=== PATIENT | male | born 1955 | race Hispanic/Latino ===

== ENCOUNTER 2019-06-20 17:42 | Observation (INO) | payer SELFPAY ==
[2019-06-20 18:50] LABS: #Basophils 0.1 thou/uL (0.0-0.2); #Eosinphils 0.1 thou/uL (0.0-0.7); #Lymphocytes 1.1 thou/uL (1.20-3.40); #Monocytes 0.6 thou/uL (0.11-0.59); #Neutrophils 9.6 thou/uL (1.40-6.50); %Basophils 0.5 % (0.0-1.0); %Eosinophils 0.8 % (0.0-10.0); %Lymphocytes 9.3 % (21.0-51.0); %Neutrophils 84.4 % (42.0-75.0); Hemoglobin 14.5 g/dL (14.0-18.0); Mean Corpuscular HGB CONC 33.4 g/dL (32.0-36.0); Mean Corpuscular Hemoglobin 32.5 pg (27.0-31.0); Mean Corpuscular Volume 97.2 fL (78.0-98.0); Mean Platelet Volume 9.6 fL (7.4-10.4); Platelet Count 213 thou/uL (130-400); RBC Distribution Width 11.9 % (11.5-14.5); Red Blood Cell (RBC) Count 4.47 mill/uL (4.70-6.10); White Blood Cell (WBC) Count 11.3 thou/uL (4.8-10.8)
--- NOTE | 2019-06-20 18:59 | RAD ---
Chest one view HISTORY: Syncope. FINDINGS: Cardiac silhouette is magnified by projection. Pulmonary vasculature is unremarkable. Subtle ill-defined areas of increased density at each lower lobe may represent mild parenchymal infil trate. No lobar consolidation or evidence of pneumothorax. Gas under the right hemidiaphragm appears to represent the hepatic flexure of the colon. IMPRESSION : Possible mild patchy bibasilar infiltrate. Clinical correlation regarding other signs and symptoms of multifocal pneumonitis is required. No lobar consolidation.
[2019-06-20 19:05] LABS: ALT (SGPT) 53 U/L (8-55); AST (SGOT) 37 U/L (5-34); Albumin 4.3 g/dL (3.4-4.8); Alkaline Phosphatase 113 U/L (40-110); Anion Gap 12 mmol/L (10-20); BUN (Urea Nitrogen) 17 mg/dL (8.4-25.7); Bilirubin, Total 0.3 mg/dL (0.2-1.2); CK (CPK) 98 U/L (30-200); Calc. Creatinine Clearance 0 mL/min (70-130); Calcium 9.5 mg/dL (7.8-10.44); Carbon Dioxide 29 mmol/L (23-31); Chloride 104 mmol/L (98-107); Estimated GFR-MDRD Greater than 90; Globulin 2.5 g/dL (2.4-3.5); Glucose 99 mg/dL (80-115); Lipase 26 U/L (8-78); Potassium 4.5 mmol/L (3.5-5.1); Protein, Total 6.8 g/dL (5.8-8.1); Sodium 140 mmol/L (136-145)
--- NOTE | 2019-06-20 19:15 | CT ---
CT head noncontrast HISTORY: Vomiting. Hypertension. FINDINGS: There is no evidence of acute intracranial hemorrhage or infarct. The ventricles appear nor mal in size, shape and position. There is no mass effect or shift of midline structures. Visualized paranasal sinuses remain well aerated. Small osseous excrescence is noted just anterior to the left side of the base of the nasal bone. IMPRESSION : No acute intracranial abnormalities are demonstrated.
[2019-06-20 20:09] LABS: Bilirubin Negative (Negative); Blood, Urine Negative (Negative); Clarity Turbid (Clear); Glucose, Urine (Dipstick) Normal (Negative); Leukocyte Negative Leu/uL (Negative); Nitrite Negative (Negative); Protein, Urine (Dipstick) Negative (Neg-Trace); Urobilinogen Normal mg/dL (Less than 2)
[2019-06-20] MEDS ORDERED: Senokot S 8.6-50 MG TAB PO PRN (21:04)
[2019-06-20] MEDS ORDERED: Acetaminophen 325 MG TAB PO PRN (21:04)
[2019-06-20] MEDS ORDERED: HYDROcodone/Acetaminophen 5/325 mg Tablet PO PRN ×2 (21:04)
[2019-06-20 22:02] LABS: Troponin I Less than 0.010 ng/mL (< 0.028)
[2019-06-20 22:28] VITALS: BMI 27.8
[2019-06-20] MEDS: cefTRIAXone\\ROCEPHIN 2 GM in Sodium Chloride 0.9% 100 ML IVPB SCH (22:44)
--- NOTE | 2019-06-20 23:08 | HP ---
PRIMARY CARE PHYSICIAN: None. CHIEF COMPLAINT: Near syncope, nausea, vomiting, and diaphoresis. HISTORY OF PRESENT ILLNESS: This is a very pleasant 63-year-old male, who reported to the emergency room today after he was at his son's house, had lunch, drank a soda, which he had stopped drinking about seven months ago and had near-syncope episodes, some diaphoresis, nausea, and then threw up once. He reports that this happens when he drinks soda. The last time that he was admitted was in [facility] where they did a workup. He says they did an echocardiogram at that time and he was sent home with no real explanation other than he needed to stop drinking soda. He reports that this episode happened again two weeks ago and again he had a soda at that time. He was always concerned because while he was in the emergency room, his heart rate dropped into the 40s and he said at that point that he also felt the similar symptoms with the nausea and diaphoresis and the weakness. His workup in the emergency room with a brain CT that was unremarkable; chest x-ray, which shows possible mild patchy bibasilar infiltrates. There is no lobar consolidation. He denies any fever or chills at home. Blood work with a slightly elevated white blood cell count of 11.3, hemoglobin 14.5, hematocrit 43.4, and platelet count 213. Chemistry unremarkable except for an AST, which slightly bumped to 37 and an alkaline phosphatase slightly bumped to 113. Troponins x2 were undetectable. Urine is negative other than it was a little bit turbid with no leukocyte esterase or white blood cells. The patient to be admitted for possible symptomatic bradycardia workup and further management. REVIEW OF SYSTEMS: Reports near syncope. Reports diaphoresis. Reports nausea. Reports vomiting. Reports dizziness. Reports weakness, which is transient. Denies fever, chills, cough, or shortness of breath. All systems are reviewed and are negative unless mentioned in the HPI or above. PAST MEDICAL HISTORY: None other than the similar episodes over the last seven months when he drinks soda. PAST SURGICAL HISTORY: Right toe surgery. PSYCHIATRIC HISTORY: None. SOCIAL HISTORY: Drinks socially. Denies drug use. No smoking history. KNOWN ALLERGIES: None. CURRENT MEDICATIONS: None. PHYSICAL EXAMINATION: VITAL SIGNS: Blood pressure 157/98, pulse 61, respiratory rate is 16, pO2 sats are 98% on room air. CONSTITUTIONAL: The patient appears nontoxic. He is alert and oriented to person, place, and time. HEAD: Atraumatic and normocephalic. EYES: Pupils are equal, round, and reactive to light. Extraocular muscles are intact. ENT: Mouth exam is normal. Mucous membranes are moist. NECK: Normal range of motion. Trachea is midline. RESPIRATORY/CHEST: Breath sounds are clear. Chest expansion is equal. CARDIOVASCULAR: Regular sinus rhythm. Heart sounds are normal. ABDOMEN: Nontender. Bowel sounds are heard. BACK: Normal range of motion. No tenderness. EXTREMITIES: Upper extremity, normal range of motion. Motor strength is normal. Radial pulses are normal. Lower extremity, normal range of motion. Motor strength is normal. Pedal pulses are normal. No edema is noted. NEUROLOGIC: The patient is oriented to person, place, and time. There are no focal deficits noted. SKIN: Warm and dry. Normal in color of the skin that is visualized. DIAGNOSTIC DATA: EKG in the emergency room shows sinus dhruv, rate 57. No ST or T-wave changes. PLAN/ASSESSMENT: 1. Possible symptomatic bradycardia. Not sure about the correlations between drinking a soda and these symptoms, although I did tell him that he probably should stop drinking sodas. We will get the records from [facility]. I have ordered an echocardiogram and a Cardiology consult. We will repeat labs, add lipids, TSH. 2. He had some nausea and vomiting when he first appeared in the ER, but he states that has resolved. We will continue to monitor that. 3. Deep venous thrombosis and gastrointestinal prophylaxis started. 4. Possible pneumonitis seen on the x-ray. He denies any symptoms. No cough. No shortness of breath. No fever. No chills. The case is discussed with Dr. Trevino, who suggested that we start antibiotics while he is hospitalized and while working him up, probably could be deescalated if he continues to not have any symptoms. 5. The case was discussed with Dr. Trevino and he agrees with the plan. 6. Hospitalization dependent on clinical findings. Job ID: [id number]
[2019-06-20] MEDS: Azithromycin 500 MG in Sodium Chloride 0.9% 250 ML 250 ML IVPB SCH (23:47)
[2019-06-21 00:59] LABS: Troponin I Less than 0.010 ng/mL (< 0.028)
[2019-06-21 05:28] LABS: #Eosinphils 0.1 thou/uL (0.0-0.7); #Lymphocytes 1.4 thou/uL (1.20-3.40); #Monocytes 0.6 thou/uL (0.11-0.59); #Neutrophils 4.9 thou/uL (1.40-6.50); %Basophils 0.4 % (0.0-1.0); %Eosinophils 1.8 % (0.0-10.0); %Lymphocytes 20.2 % (21.0-51.0); %Neutrophils 69.6 % (42.0-75.0); Hemoglobin 14.2 g/dL (14.0-18.0); Mean Corpuscular HGB CONC 32.1 g/dL (32.0-36.0); Mean Corpuscular Hemoglobin 31.5 pg (27.0-31.0); Mean Platelet Volume 10.2 fL (7.4-10.4); Platelet Count 217 thou/uL (130-400); RBC Distribution Width 12.1 % (11.5-14.5); Red Blood Cell (RBC) Count 4.52 mill/uL (4.70-6.10); White Blood Cell (WBC) Count 7.1 thou/uL (4.8-10.8)
[2019-06-21 05:45] LABS: ALT (SGPT) 42 U/L (8-55); AST (SGOT) 23 U/L (5-34); Alkaline Phosphatase 109 U/L (40-110); Anion Gap 11 mmol/L (10-20); BUN (Urea Nitrogen) 13 mg/dL (8.4-25.7); Bilirubin, Total 0.4 mg/dL (0.2-1.2); Calc. Creatinine Clearance 136 mL/min (70-130); Carbon Dioxide 27 mmol/L (23-31); Cardiac Risk 4.3 (Less than 4.5); Chloride 106 mmol/L (98-107); Cholesterol 226 mg/dl (< 200 Desired); Estimated GFR-MDRD Greater than 90; Globulin 2.6 g/dL (2.4-3.5); Glucose 106 mg/dL (80-115); HDL Cholesterol 53 mg/dL (>60 Neg Risk); LDL Cholesterol, Calculated 153 mg/dL; Potassium 3.9 mmol/L (3.5-5.1); Protein, Total 6.6 g/dL (5.8-8.1); Sodium 140 mmol/L (136-145); Triglycerides 99 mg/dL (Less than 150)
[2019-06-21] MEDS ORDERED: Metoclopramide HCl 10 MG/2 ML VIAL IVP PRN (08:21)
[2019-06-21] MEDS ORDERED: Sodium Chloride 0.65% Nasal 44 ML BOT EA NARE PRN (08:21)
[2019-06-21] MEDS ORDERED: hydrALAZINE 20 MG/ML VIAL SLOW IVP PRN (08:21)
[2019-06-21] MEDS ORDERED: Calcium Carbonate 500 MG ChewTAB PO PRN (08:21)
[2019-06-21] MEDS ORDERED: Cepastat Lozenges 1 LOZ PO PRN (08:21)
[2019-06-21] MEDS ORDERED: Diabetic Tussin 200 MG/10 ML UDCUP PO PRN (08:21)
[2019-06-21] MEDS ORDERED: Artificial Tears 18 DROP/0.9 ML EA EYE PRN (08:21)
[2019-06-21] MEDS ORDERED: Loratadine 10 MG TAB PO PRN (08:21)
[2019-06-21] MEDS ORDERED: Zolpidem Tartrate 5 MG TAB PO PRN (08:21)
[2019-06-21] MEDS ORDERED: Loperamide HCl 2 MG CAP PO PRN (08:21)
[2019-06-21] MEDS: Famotidine 20 MG TAB PO SCH ×2 (09:04→21:40)
[2019-06-21] MEDS: Enoxaparin Sodium 40 MG/0.4 ML SYRINGE SC SCH (09:04)
--- NOTE | 2019-06-21 10:46 | PDOC.HOSPP ---
- Subjective Encounter Date: 06/21/19 Encounter Time: 08:15 Subjective: Patient seen and examined. No new complaints. No overnight events - Objective Vital Signs & Weight: Vital Signs (12 hours) Temp Pulse Pulse Pulse Resp BP BP 06/21/19 08:43 67 67 119/76 137/69 06/21/19 07:52 98.6 F 61 18 06/21/19 03:23 97.4 F L 62 16 BP Pulse Ox 06/21/19 08:43 06/21/19 07:52 120/73 97 06/21/19 03:23 118/73 99 Weight Weight 193 lb 12.8 oz Result Diagrams: 06/21/19 04:55 06/21/19 04:55 Radiology Reviewed by me: Yes EKG Reviewed by me: Yes Hospitalist ROS - Review of Systems ENT: denies: ear pain, ear discharge, nose pain, nose discharge, nose congestion , mouth pain, mouth swelling, throat pain, throat swelling, other Respiratory: denies: cough, dry, shortness of breath, hemoptysis, SOB with excertion, pleuritic pain, sputum, wheezing, other Cardiovascular: denies: chest pain, palpitations, orthopnea, paroxysmal noc. dyspnea, edema, light headedness, other Gastrointestinal: denies: nausea, vomiting, abdominal pain, diarrhea, constipation, melena, hematochezia, other Genitourinary: denies: dysuria, frequency, incontinence, hematuria, retention, other Musculoskeletal: denies: neck pain, shoulder pain, arm pain, back pain, hand pain, leg pain, foot pain, other - Medication Medications: Active Medications Generic Name Dose Route Start Last Admin Trade Name Deshawn PRN Reason Stop Dose Admin Acetaminophen 650 mg 06/20/19 21:04 06/20/19 22:12 Tylenol PO 650 mg Q4H PRN Administration Headache/Fever/Mild Pain (1-3) Enoxaparin Sodium 40 mg 06/21/19 09:00 06/21/19 09:04 Lovenox SC 40 mg 0900 [facility] Administration Famotidine 20 mg 06/21/19 09:00 06/21/19 09:04 Pepcid PO 20 mg BID OSMAN Administration Azithromycin 500 mg/ Sodium 250 mls @ 250 mls/hr 06/20/19 23:00 06/20/19 23: 47 Chloride IVPB 250 mls 2300 OSMAN Administration Ceftriaxone Sodium 2 gm/ 100 mls @ 200 mls/hr 06/20/19 22:00 06/20/19 22:44 Sodium Chloride IVPB 100 mls 2200 OSMAN Administration - Exam General Appearance: NAD, awake alert Eye: PERRL, anicteric sclera ENT: normocephalic atraumatic, no oropharyngeal lesions Neck: supple, symmetric, no JVD, no thyromegaly Heart: RRR, no murmur, no gallops, no rubs Respiratory: CTAB, no wheezes, no rales, no ronchi Gastrointestinal: soft, non-tender, non-distended, normal bowel sounds Extremities: no cyanosis, no clubbing Skin: normal turgor, no lesions Neurological: cranial nerve grossly intact, no focal deficits Musculoskeletal: normal tone, normal strength Psychiatric: normal affect, normal behavior Hosp A/P (1) Syncope Code(s): R55 - SYNCOPE AND COLLAPSE Status: Acute (2) Bradycardia Code(s): R00.1 - BRADYCARDIA, UNSPECIFIED Status: Acute (3) Pneumonia Code(s): J18.9 - PNEUMONIA, UNSPECIFIED ORGANISM Status: Acute - Plan old records reviewed/req, continue antibiotics echo today cardiology consulted orthostatic vitals continue rocephin and azithromycin expecting discharge tomorrow continue tele monitoring medication reviewed and continue symptomatic treatment
--- NOTE | 2019-06-21 14:43 | CON ---
DATE OF CONSULTATION: 06/21/2019 REASON FOR CONSULTATION: Near-syncope. HISTORY OF PRESENT ILLNESS: Mr. Prado is a 63-year-old gentleman with no significant past medical history, who states he has had dizziness, lightheadedness, and presyncope over the last year. He has 2 to 3 episodes per month. He states sometimes he gets from a lying to standing position, where he develop symptoms, but sometimes it can be spontaneous. He was seen and evaluated at [facility] recently with a full cardiac workup per patient. Records from [facility] are currently not available. No chest pain, pressure, or other associated symptoms. PAST MEDICAL HISTORY: As above. SURGICAL HISTORY: Foot surgery. SOCIAL HISTORY: No current tobacco or alcohol use. ALLERGIES: NONE. MEDICATIONS: None. REVIEW OF SYSTEMS: A 10-point review of systems is reviewed as above, otherwise negative. PHYSICAL EXAMINATION: GENERAL: Patient is a pleasant male, who is in no acute distress. The patient appears their stated age. VITAL SIGNS: Blood pressure lying, sitting, standing 111/62, 105/64, and 108/71 respectively. Pulse 63. NEUROLOGIC: The patient is alert and oriented x3 with no focal neurologic deficits. HEENT: Sclerae without icterus. Mouth has moist mucous membranes with normal pallor. NECK: No JVD. Carotid upstroke brisk. No bruits bilaterally. LUNGS: Clear to auscultation with unlabored respirations. BACK: No scoliosis or kyphosis. CARDIAC: Regular rate and rhythm with normal S1 and S2. No S3 or S4 noted. No significant rubs, murmurs, thrills, or gallops noted throughout the precordium. PMI is not displaced. There is no parasternal heave. ABDOMEN: Soft, nontender, nondistended. No peritoneal signs present. No hepatosplenomegaly. No abnormal striae. EXTREMITIES: 2+ femoral and 2+ dorsalis pedis pulses. No cyanosis, clubbing, or edema. SKIN: No gross abnormalities. DIAGNOSTIC DATA: EKG; normal sinus rhythm, normal EKG. PERTINENT LABORATORY DATA: Hemoglobin 14.2. Creatinine 0.69. CK troponin negative. IMPRESSION: Presyncope. RECOMMENDATIONS: 1. Obtain records from [facility]. Do not repeat any further studies. 2. The patient does have bradycardia noted on the monitor, but all above 50. 3. If echo and stress have been performed at [facility], we will therefore recommend a 3-week event recorder. 4. Otherwise, I have no further recommendations. Job ID: [id number]
[2019-06-21] MEDS: cefTRIAXone\\ROCEPHIN 2 GM in Sodium Chloride 0.9% 100 ML IVPB SCH (21:41)
[2019-06-21] MEDS: Azithromycin 500 MG in Sodium Chloride 0.9% 250 ML 250 ML IVPB SCH (22:28)
[2019-06-22] MEDS: Enoxaparin Sodium 40 MG/0.4 ML SYRINGE SC SCH (09:03)
[2019-06-22] MEDS: Famotidine 20 MG TAB PO SCH (09:03)
--- NOTE | 2019-06-22 09:49 | PDOC.HOSPP ---
- Subjective Encounter Date: 06/22/19 Encounter Time: 08:10 Subjective: Patient seen and examined. No new complaints. No overnight events - Objective Vital Signs & Weight: Vital Signs (12 hours) Temp Pulse Resp BP BP Pulse Ox 06/22/19 07:16 97.8 F 62 12 116/66 96 06/22/19 03:34 97.6 F 55 L 105/56 L 97 Weight Admit Weight 193 lb 12.8 oz Weight 193 lb 12.8 oz I&O: 06/21/19 06/22/19 06/23/19 06:59 06:59 06:59 Intake Total 950 Balance 950 Result Diagrams: 06/21/19 04:55 06/21/19 04:55 Radiology Reviewed by me: Yes EKG Reviewed by me: Yes Hospitalist ROS - Review of Systems ENT: denies: ear pain, ear discharge, nose pain, nose discharge, nose congestion , mouth pain, mouth swelling, throat pain, throat swelling, other Respiratory: denies: cough, dry, shortness of breath, hemoptysis, SOB with excertion, pleuritic pain, sputum, wheezing, other Cardiovascular: denies: chest pain, palpitations, orthopnea, paroxysmal noc. dyspnea, edema, light headedness, other Gastrointestinal: denies: nausea, vomiting, abdominal pain, diarrhea, constipation, melena, hematochezia, other Genitourinary: denies: dysuria, frequency, incontinence, hematuria, retention, other Musculoskeletal: denies: neck pain, shoulder pain, arm pain, back pain, hand pain, leg pain, foot pain, other - Medication Medications: Active Medications Generic Name Dose Route Start Last Admin Trade Name Deshawn PRN Reason Stop Dose Admin Acetaminophen 650 mg 06/20/19 21:04 06/20/19 22:12 Tylenol PO 650 mg Q4H PRN Administration Headache/Fever/Mild Pain (1-3) Enoxaparin Sodium 40 mg 06/21/19 09:00 06/22/19 09:03 Lovenox SC 40 mg 0900 OSMAN Administration Famotidine 20 mg 06/21/19 09:00 06/22/19 09:03 Pepcid PO 20 mg BID OSMAN Administration Azithromycin 500 mg/ Sodium 250 mls @ 250 mls/hr 06/20/19 23:00 06/21/19 22: 28 Chloride IVPB 250 mls 2300 [facility] Administration Ceftriaxone Sodium 2 gm/ 100 mls @ 200 mls/hr 06/20/19 22:00 06/21/19 21:41 Sodium Chloride IVPB 100 mls 2200 OSMAN Administration - Exam General Appearance: NAD, awake alert Eye: PERRL, anicteric sclera ENT: normocephalic atraumatic, no oropharyngeal lesions Neck: supple, symmetric, no JVD Heart: RRR, no murmur, no gallops, no rubs Respiratory: CTAB, no wheezes, no rales, no ronchi Gastrointestinal: soft, non-tender, non-distended, normal bowel sounds Extremities: no cyanosis, no clubbing, no edema Skin: normal turgor, no lesions Neurological: cranial nerve grossly intact, no focal deficits Musculoskeletal: normal tone, normal strength Psychiatric: normal affect, normal behavior Hosp A/P (1) Syncope Code(s): R55 - SYNCOPE AND COLLAPSE Status: Acute (2) Bradycardia Code(s): R00.1 - BRADYCARDIA, UNSPECIFIED Status: Acute (3) Pneumonia Code(s): J18.9 - PNEUMONIA, UNSPECIFIED ORGANISM Status: Acute - Plan old records reviewed/req echo today cardiology consulted orthostatic vitals continue rocephin and azithromycin expecting discharge tomorrow continue tele monitoring medication reviewed and continue symptomatic treatment 06/22/19 await record from [place] if OK, and cardio OK, will DC later today ? plan for event recorder
--- NOTE | 2019-06-22 11:01 | DIS ---
DATE OF ADMISSION: 06/20/2019 DATE OF DISCHARGE: 06/22/2019 PRIMARY CARE PHYSICIAN: [facility] Call admission. DISCHARGE DISPOSITION: Home. PRIMARY DISCHARGE DIAGNOSES: 1. Suspected pneumonia. 2. Symptomatic bradycardia, resolved. 3. Near syncope, resolved. SECONDARY DISCHARGE DIAGNOSIS: None. PRIMARY PROCEDURES/OPERATIONS: None. RADIOLOGICAL INVESTIGATION: CT of brain, negative. Chest x-ray, normal. SIGNIFICANT LABORATORY DATA: WBC 7.1, hemoglobin 14.2, platelet 217. Sodium 140, creatinine 0.69. LFTs normal. Cardiac enzymes negative x3. Urinalysis normal. DISCHARGE MEDICATIONS: Omnicef 300 mg p.o. b.i.d. for 5 days. CONTRAINDICATION: None. CODE STATUS: Full code. INPATIENT SPECIAL EVENTS ASSISTANT: Dr. Neumann was following while in hospital. TEST RESULTS PENDING ON DISCHARGE: None. ALLERGIES: NO KNOWN DRUG ALLERGIES. DISCHARGE PLAN: Post hospital, the patient will follow up with primary care physician in 1 week. HOSPITAL COURSE: A 63-year-old male, who was admitted by nurse practitioner. Please see her H and P for further details. The patient was experiencing dizzy spells. The patient had bradycardia on arrival. The patient's CT brain was negative. Routine blood test was unremarkable. Chest x-ray was suspected for some infiltration and that is why he was empirically treated for community-acquired pneumonia with Rocephin and azithromycin. This patient had full workup done recently at [facility]. We obtained medical records from that hospital. Cardiology recommending Holter monitoring. There is no plan for further testing during this admission. The patient's cardiac etiology has been ruled out. His heart rate is remaining in 60s to 70s and he has no further bradycardia episode while in the hospital. He does not have any orthostatic hypotension. At this point, telemetry remained unremarkable and Cardiology cleared him for discharge later on today. The patient is seen and examined at bedside today. The patient will be discharged to home later on today. Job ID: [id number]
[2019-06-22 16:20] VITALS: BP 122/72; TEMP 98.3
--- NOTE | 2019-06-22 18:13 | PRG ---
DATE OF SERVICE: 06/22/2019 SUBJECTIVE: Mr. Prado is doing well. No current complaints. His rhythm appears stable. Review of the previous studies for [facility] suggested normal LVEF and no significant stenosis of his carotids. OBJECTIVE: VITAL SIGNS: Blood pressure 122/72, pulse 85, and temperature 98.3. LUNGS: Clear to auscultation. HEART: Regular rate and rhythm. ABDOMEN: Soft, nontender, and nondistended. EXTREMITIES: No edema. IMPRESSION: 1. Dizziness. 2. Lightheadedness. 3. Presyncope. RECOMMENDATIONS: Mr. Prado's cardiac workup in the past is negative. Recommend a 3-week event recorder. Can arrange as an outpatient. Otherwise, I have no further recommendations. Job ID: [id number]
--- NOTE | 2019-06-26 13:30 | EKG ---
Test Reason : SYNCOPE Blood Pressure : / mmHG Vent. Rate : 057 BPM Atrial Rate : 057 BPM P-R Int : 158 ms QRS Dur : 092 ms QT Int : 420 ms P-R-T Axes : 021 -10 004 degrees QTc Int : 408 ms Sinus bradycardia Otherwise normal ECG Confirmed by GEORGINA RICHARDSON DO ([id number]), editorial assistant IRMA FERNANDO ([id number]) on 06/26/2019 1:30:26 PM Referred By: Confirmed By:GEORGINA RICHARDSON DO
== END 2019-06-22 18:40 | disposition home or self-care (01) ==
LOC: ERS 17:42 → 2NO 20:36
PROVIDERS: ADMIT Internal Medicine; ATTEND Internal Medicine
DX: R55 Syncope and collapse (principal); R00.1 Bradycardia, unspecified; R11.2 Nausea with vomiting, unspecified; R61 Generalized hyperhidrosis; R42 Dizziness and giddiness
CPT/HCPCS: 36415; 70450; 71045; 80053; 80061; 81003; 82550; 83690; 84443; 84484; 85025; 93005; 93306; 96361; 96372; 96374; 96375; 96376; G0378; J0456; J0696; J1650; J3490; J7050

== ENCOUNTER 2019-06-28 13:40 | Observation (INO) | payer MEDICARE, SELFPAY ==
[2019-06-28 14:31] LABS: #Eosinphils 0.1 thou/uL (0.0-0.7); #Lymphocytes 1.1 thou/uL (1.20-3.40); #Monocytes 0.3 thou/uL (0.11-0.59); #Neutrophils 7.1 thou/uL (1.40-6.50); %Basophils 0.2 % (0.0-1.0); %Eosinophils 0.8 % (0.0-10.0); %Lymphocytes 13.2 % (21.0-51.0); %Monocytes 3.8 % (0.0-10.0); %Neutrophils 81.9 % (42.0-75.0); Hemoglobin 14.5 g/dL (14.0-18.0); Mean Corpuscular HGB CONC 32.3 g/dL (32.0-36.0); Mean Corpuscular Hemoglobin 31.4 pg (27.0-31.0); Mean Corpuscular Volume 97.3 fL (78.0-98.0); Mean Platelet Volume 9.9 fL (7.4-10.4); Platelet Count 231 thou/uL (130-400); Red Blood Cell (RBC) Count 4.61 mill/uL (4.70-6.10); White Blood Cell (WBC) Count 8.6 thou/uL (4.8-10.8)
--- NOTE | 2019-06-28 14:41 | RAD ---
PORTABLE CHEST: History: Chest pain. FINDINGS: Lung lee appear clear of infiltrate. Heart and mediastinum unremarkable. Vasculature normal. IMPRESSION: No acute process identified. POS: [facility]
[2019-06-28 15:05] LABS: ALT (SGPT) 33 U/L (8-55); AST (SGOT) 19 U/L (5-34); Albumin 4.4 g/dL (3.4-4.8); Alkaline Phosphatase 114 U/L (40-110); Anion Gap 14 mmol/L (10-20); BUN (Urea Nitrogen) 13 mg/dL (8.4-25.7); Bilirubin, Total 0.5 mg/dL (0.2-1.2); Calc. Creatinine Clearance 0 mL/min (70-130); Calcium 9.1 mg/dL (7.8-10.44); Carbon Dioxide 25 mmol/L (23-31); Chloride 103 mmol/L (98-107); Estimated GFR-MDRD Greater than 90; Globulin 2.6 g/dL (2.4-3.5); Glucose 130 mg/dL (80-115); Potassium 4.1 mmol/L (3.5-5.1); Sodium 138 mmol/L (136-145)
[2019-06-28] MEDS ORDERED: Aspirin Chewable 81 MG TAB ONE (15:27)
[2019-06-28 18:44] VITALS: BMI 26.8
[2019-06-28] MEDS ORDERED: Nitroglycerin 0.4 MG TAB (25 Tab Bottle) PO PRN (20:47)
[2019-06-28] MEDS ORDERED: Calcium Carbonate 500 MG ChewTAB PO PRN (20:53)
[2019-06-28] MEDS ORDERED: Acetaminophen 325 MG TAB PO PRN (20:53)
--- NOTE | 2019-06-28 20:58 | PDOC.HHP ---
Hospitalist HPI - History of Present Illness Chest Pain History of Present Illness: PCP: NONE Child And Family Services Worker: Dr. Neumann The patient is frisian speaking, so H&P was from [employer] interpreter. The patient is a 63/M with PMH significant for HTN that presents to the ER for the above complaint. The patient reports developing chest pain for past 5 days, located left chest, radiating to left arm and neck, describes as a dull pressure , constant, exacerbated and relieved by nothing. He denies any heart palpitations, sob, wheezing. Denies any headaches or light headedness. Denies any abdominal pain, n/v/d. Denies any fever or chills. He was discharged from our hospital on 06/22/19 for suspected pneumonia (d/c'd on omnicef), bradycardia and near syncope. Dr. Neumann was consulted and noted that patient recently had full cardiac workup at the [facility] and if workup was unremarkable, he recommended follow up in 3 weeks for possible event recorder. ED Course: EKG SB 60s Trop negative CXR negative CMP and CBC unremarkable Given: ASA 324mg Hospitalist ROS - Review of Systems Constitutional: denies: fever, chills, sweats, weakness, malaise, other Eyes: denies: pain, vision change, conjunctivae inflammation, eyelid inflammation, redness, other ENT: denies: ear pain, ear discharge, nose pain, nose discharge, nose congestion , mouth pain, mouth swelling, throat pain, throat swelling, other Respiratory: denies: cough, dry, shortness of breath, hemoptysis, SOB with excertion, pleuritic pain, sputum, wheezing, other Cardiovascular: reports: chest pain. denies: palpitations, orthopnea, paroxysmal noc. dyspnea, edema, light headedness Gastrointestinal: denies: nausea, vomiting, abdominal pain, diarrhea, constipation, melena, hematochezia, other Genitourinary: denies: dysuria, frequency, incontinence, hematuria, retention, other Neurological: denies: weakness, numbness, incoordination, change in speech, confusion, seizures, other Hospitalist History - Past Medical History Cardiac: reports: HTN (not taking any medications) - Past Surgical History Past Surgical History: reports: Other (right 2nd toe amputation from working accident) - Family History Family History: reports: respiratory disorder - Social History Smoking Status: Never smoker Alcohol: reports: None Drugs: reports: none Living Situation: With Family Occupation: Lives in [place], disability - Exam General Appearance: NAD, awake alert Eye: anicteric sclera ENT: normocephalic atraumatic Neck: supple, no JVD Heart: RRR, no murmur, no gallops, no rubs, normal peripheral pulses Respiratory: CTAB, no wheezes, no rales, no ronchi, no tachypnea Gastrointestinal: soft, non-tender, normal bowel sounds, no guarding, no rigidity Extremities: no cyanosis, no edema Neurological: no focal deficits Musculoskeletal: normal tone, normal strength Psychiatric: normal affect, A&O x 3 Hospitalist Results - Labs Result Diagrams: 06/28/19 14:09 06/28/19 14:09 Lab results: WBC 8.6 thou/uL (4.8-10.8) 06/28/19 14:09 Hgb 14.5 g/dL (14.0-18.0) 06/28/19 14:09 Hct 44.9 % (42.0-52.0) 06/28/19 14:09 MCV 97.3 fL (78.0-98.0) 06/28/19 14:09 Plt Count 231 thou/uL (130-400) 06/28/19 14:09 Neutrophils % 81.9 % (42.0-75.0) H 06/28/19 14:09 Sodium 138 mmol/L (136-145) 06/28/19 14:09 Potassium 4.1 mmol/L (3.5-5.1) 06/28/19 14:09 Chloride 103 mmol/L (98-107) 06/28/19 14:09 Carbon Dioxide 25 mmol/L (23-31) 06/28/19 14:09 BUN 13 mg/dL (8.4-25.7) 06/28/19 14:09 Creatinine 0.78 mg/dL (0.7-1.3) 06/28/19 14:09 Glucose 130 mg/dL (80-115) H 06/28/19 14:09 Calcium 9.1 mg/dL (7.8-10.44) 06/28/19 14:09 Total Bilirubin 0.5 mg/dL (0.2-1.2) 06/28/19 14:09 AST 19 U/L (5-34) 06/28/19 14:09 ALT 33 U/L (8-55) 06/28/19 14:09 Alkaline Phosphatase 114 U/L (40-110) H 06/28/19 14:09 Troponin I Less than 0.010 ng/mL (< 0.028) 06/28/19 14:09 Serum Total Protein 7.0 g/dL (5.8-8.1) 06/28/19 14:09 Albumin 4.4 g/dL (3.4-4.8) 06/28/19 14:09 - EKG Interpretation EKG: SB - Radiology Interpretation Chest x-ray Status: report reviewed by me Hospitalist H&P A/P - Problem (1) Chest pain Code(s): R07.9 - CHEST PAIN, UNSPECIFIED Status: Acute Assessment and Plan: Admit to telemetry floor, observation status Expected length of stay less than 2 midnights HEART Score 2, low score EKG SB, Trop negative, CXR unremarkable Patient had recent cardiac workup at [facility] Will obtain records for cardiac workup at [facility] Will trend trops, check BNP and Mag and TSH level FLP on 06/21/19 completed Cholesterol 226 Triglycerides 99 LDL 153 HDL 53 BS elevated at 130, will check HA1C Continue ASA (2) Bradycardia Code(s): R00.1 - BRADYCARDIA, UNSPECIFIED Status: Chronic Assessment and Plan: Stable, 60s Previously seen by Dr. Neumann in June 2019, recommended 3 week follow up for possible event recorder (3) HTN (hypertension) Code(s): I10 - ESSENTIAL (PRIMARY) HYPERTENSION Status: Chronic Assessment and Plan: No medication regimen BP stable 122/67 Will continue to monitor - Plan Plan: Consult walking program Pepcid GI prophylaxis LMWH and SCDs for DVT prophylaxis Full Code Medical decision maker is Naila Cash at [phone] Trevino
[2019-06-28] MEDS: Famotidine 20 MG TAB PO SCH (21:21)
[2019-06-28 21:54] LABS: Troponin I Less than 0.010 ng/mL (< 0.028)
[2019-06-28 22:01] LABS: Hemoglobin A1c 5.6 % (4.0-6.0)
[2019-06-29 00:07] LABS: Troponin I 0.013 ng/mL (< 0.028)
[2019-06-29] MEDS: Sodium Chloride 0.9% 1,000 ML IV SCH ×2 (00:10→13:46)
[2019-06-29 05:31] LABS: #Basophils 0.1 thou/uL (0.0-0.2); #Eosinphils 0.1 thou/uL (0.0-0.7); #Lymphocytes 1.6 thou/uL (1.20-3.40); #Monocytes 0.5 thou/uL (0.11-0.59); #Neutrophils 3.5 thou/uL (1.40-6.50); %Basophils 1.2 % (0.0-1.0); %Eosinophils 2.6 % (0.0-10.0); %Lymphocytes 27.4 % (21.0-51.0); %Neutrophils 60.8 % (42.0-75.0); Hemoglobin 14.3 g/dL (14.0-18.0); Mean Corpuscular HGB CONC 32.2 g/dL (32.0-36.0); Mean Corpuscular Hemoglobin 31.8 pg (27.0-31.0); Mean Corpuscular Volume 98.7 fL (78.0-98.0); Platelet Count 215 thou/uL (130-400); RBC Distribution Width 12.1 % (11.5-14.5); Red Blood Cell (RBC) Count 4.49 mill/uL (4.70-6.10); White Blood Cell (WBC) Count 5.7 thou/uL (4.8-10.8)
[2019-06-29 05:54] LABS: Anion Gap 11 mmol/L (10-20); BUN (Urea Nitrogen) 14 mg/dL (8.4-25.7); Calc. Creatinine Clearance 131 mL/min (70-130); Calcium 8.5 mg/dL (7.8-10.44); Carbon Dioxide 23 mmol/L (23-31); Chloride 107 mmol/L (98-107); Estimated GFR-MDRD Greater than 90; Glucose 97 mg/dL (80-115); Potassium 4.3 mmol/L (3.5-5.1); Sodium 137 mmol/L (136-145)
[2019-06-29] MEDS: Famotidine 20 MG TAB PO SCH ×2 (08:35→20:39)
[2019-06-29] MEDS: Aspirin 325 mg Enteric Coated Tablet PO SCH (08:35)
[2019-06-29] MEDS: Enoxaparin Sodium 40 MG/0.4 ML SYRINGE SC SCH (08:35)
--- NOTE | 2019-06-29 15:00 | PDOC.HOSPP ---
- Subjective Subjective: Seen and examined. Patient does endorse chest pain this a.m. 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 States he does have some radiation to the back. No shortness of breath. Breathing well on room air. - Objective Vital Signs & Weight: Vital Signs (12 hours) Temp Pulse Resp BP Pulse Ox 06/29/19 12:00 98.0 F 60 16 126/82 98 06/29/19 07:40 98.3 F 57 L 14 127/76 97 06/29/19 04:04 97 06/29/19 03:46 97.7 F 60 12 121/80 98 Weight Weight 197 lb 8.547 oz I&O: 06/28/19 06/29/19 06/30/19 06:59 06:59 06:59 Intake Total 550 980 Balance 550 980 Result Diagrams: 06/29/19 05:20 06/29/19 05:20 Radiology Reviewed by me: Yes Hospitalist ROS - Review of Systems All other systems reviewed; all pertinent +/- noted in HPI/Subj - Medication Medications: Active Medications Generic Name Dose Route Start Last Admin Trade Name Freq PRN Reason Stop Dose Admin Aspirin 325 mg 06/29/19 09:00 06/29/19 08:35 Ecotrin PO 325 mg DAILY OSMAN Administration Enoxaparin Sodium 40 mg 06/29/19 09:00 06/29/19 08:35 Lovenox SC 40 mg 0900 OSMAN Administration Famotidine 20 mg 06/28/19 21:00 06/29/19 08:35 Pepcid PO 20 mg BID OSMAN Administration Sodium Chloride 1,000 mls @ 75 mls/hr 06/28/19 23:55 06/29/19 13:46 Normal Saline 0.9% IV 1,000 mls .[id number] OSMAN Administration - Exam General Appearance: NAD, awake alert Eye: anicteric sclera ENT: normocephalic atraumatic, moist mucosa Neck: supple, symmetric Heart: RRR, no murmur, no gallops, no rubs Respiratory: CTAB, no wheezes, no rales, no ronchi, normal chest expansion, no tachypnea Gastrointestinal: soft, non-tender, no guarding, no rigidity Extremities: no edema Skin: no lesions, no rashes Neurological: cranial nerve grossly intact, no focal deficits Musculoskeletal: normal strength Psychiatric: normal affect, A&O x 3 Hosp A/P (1) Chest pain Code(s): R07.9 - CHEST PAIN, UNSPECIFIED Status: Acute (2) Bradycardia Code(s): R00.1 - BRADYCARDIA, UNSPECIFIED Status: Chronic (3) HTN (hypertension) Code(s): I10 - ESSENTIAL (PRIMARY) HYPERTENSION Status: Chronic - Plan Plan: medical unit with telemetry cardiology consultation, recommendations appreciated continuous telemetry to monitor for arrhythmia has had recent negative cardiac workup at an outside hospital morphing, oxygen, nitrates, aspirin continue home medications as able blood pressure control blood sugar control G.I. prophylaxis DVT prophylaxis
[2019-06-29] MEDS ORDERED: Morphine 2 MG/ML SYRINGE SLOW IVP PRN (15:02)
--- NOTE | 2019-06-29 23:04 | CON ---
DATE OF CONSULTATION: 06/29/2019 INDICATION FOR CONSULTATION: A 63-year-old patient who complains of chest pain for several days or weeks. He speaks very little Frisian, but has been complaining of chest discomfort. He also was recently seen in the hospital and underwent a cardiology consultation by Dr. Neumann only 8 days ago due to dizziness and lightheadedness. At this time, he complains of chest pain. He denies any dizziness to me at this time. He apparently had some type of cardiac workup over at [facility] in the past. It appeared that this was mainly due to his dizziness. I think he had carotid ultrasound performed. I do not see indication that the patient had any recent stress test or whether or not he has ever had a stress test. At this time, cardiac enzymes are negative. EKG is unremarkable. He still continues to have some chest discomfort as 05/20. PAST MEDICAL HISTORY: Significant for hypertension and some type of toe surgery. 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 There is no history of alcohol or tobacco abuse. FAMILY HISTORY: Noncontributory at this time. ALLERGIES: NONE. MEDICATIONS: Prior to admission included: 1. Aspirin. 2. Some medicine for hypertension. REVIEW OF SYSTEMS: A 12-point review of systems was unremarkable except for what was noted in the history of the present illness. PHYSICAL EXAMINATION: GENERAL: Reveals a well-developed, well-nourished, middle-aged gentleman, in no acute distress. VITAL SIGNS: Blood pressure is 126/82, heart rate is 60 and regular, respiratory rate 16, he is afebrile, O2 saturation 98% on room air. HEENT: Shows the head to be normocephalic and atraumatic. NECK: Carotid pulses are present. Did not hear any bruits. There is no JVD noted. CHEST: Clear to auscultation. No rales, rhonchi, or wheezing were noted. CARDIOVASCULAR: Reveals a regular rate and rhythm with normal S1 and S2. There is no S3 or S4. There were no significant murmurs, heaves, thrills, bruits, or rubs noted. ABDOMEN: Soft and nontender. Positive bowel sounds are present. There is no organomegaly or masses noted. Femoral pulses are present. Pedal pulses are present. NEUROLOGIC: The patient appears to be fully intact. There are no gross focal motor deficits noted. DIAGNOSTIC DATA: His chest x-ray is unremarkable. EKG is also unremarkable. LABORATORY DATA: His cardiac enzymes are negative. BNP is only 20. His potassium was 4.3, BUN was 14, creatinine 0.73. White blood cell count was 5.7 with a hemoglobin of 14.3. Also, glucose was 97. Sodium was 137. IMPRESSION: 1. Chest pain in a 63-year-old gentleman with minimal risk factors of coronary artery disease except for hypertension. There is no indication that the enzymes remain negative. EKG is also unremarkable. From what I can determine, he has not had a previous stress test in the past. It may be beneficial to the patient to undergo stress testing unless these have been performed elsewhere, but I do not see these listed in the records from before. We will schedule him for stress testing for tomorrow and also echocardiogram if we cannot find an echo, but I would imagine he did have an echocardiogram performed when he was at [facility] if he had a workup for dizziness and we will try to elicit where these records were performed, but I will go ahead and order a stress test for the patient. 2. Hypertension. This is under good control at this time and he is not on any medications to control the blood pressure at this time. Thus, he most likely does not have any significant hypertension. He has been placed on deep venous thrombosis prophylaxis, Lovenox. Further care of the patient will depend on the results of the stress test and he will be followed by most likely Dr. Neumann tomorrow. Job ID: [id number]
[2019-06-30] MEDS: Sodium Chloride 0.9% 1,000 ML IV SCH (02:23)
[2019-06-30] MEDS ORDERED: Regadenoson 0.4 MG/5 ML SYRINGE ONE (10:44)
[2019-06-30 11:44] VITALS: BP 130/75; TEMP 97.7
--- NOTE | 2019-06-30 12:05 | NM ---
NUCLEAR MEDICINE CARDIAC MYOCARDIAL PERFUSION SPECT EJECTION FRACTION STUDY WALL MOTION CINE: DATE: 06/30/2019 HISTORY: 63-year-old hypertensive male presents with chest pain TECHNIQUE: Number of days: 1 Rest study: Technetium 99m-sestamibi (Cardiolite) dose: 9.5 mCi Pharmacologic stress: Lexiscan dose: 0.4 mg Stress study: Technetium 99m-sestamibi (Cardiolite) dose: 29.5 mCi FINDINGS: CARDIAC (MYOCARDIAL PERFUSION) SPECT There are no reversible myocardial perfusion defects. EJECTION FRACTION STUDY Left ventricular EF = 65 % WALL MOTION CINE Normal IMPRESSION: No evidence of reversible ischemia.
[2019-06-30] MEDS: Enoxaparin Sodium 40 MG/0.4 ML SYRINGE SC SCH (12:41)
[2019-06-30] MEDS: Famotidine 20 MG TAB PO SCH (12:41)
[2019-06-30] MEDS: Aspirin 325 mg Enteric Coated Tablet PO SCH (12:42)
--- NOTE | 2019-06-30 15:24 | EKG ---
Test Reason : CHEST PAIN Blood Pressure : / mmHG Vent. Rate : 059 BPM Atrial Rate : 059 BPM P-R Int : 156 ms QRS Dur : 094 ms QT Int : 404 ms P-R-T Axes : 033 006 015 degrees QTc Int : 399 ms Sinus bradycardia Otherwise normal ECG Confirmed by PEPE HAZEL, ANA Servin ([id number]), makeup editor DANIEL JASON ([id number]) on 06/30/2019 3:23:51 PM Referred By: Confirmed By:ANA CANTU MD
--- NOTE | 2019-07-01 00:55 | PRG ---
DATE OF SERVICE: 06/30/2019 SUBJECTIVE: Mr. Prado is currently doing well. He was admitted yesterday for again recurrent dizziness and presyncope. No true syncope noted. He also complained of atypical chest pain. He underwent a noninvasive stress study today. It was negative for ischemia. During his previous hospitalization, EVR was recommended. This was ordered and placed with [employer]. Authorization was pending. Patient states he was supposed to receive it tomorrow. OBJECTIVE: VITAL SIGNS: Blood pressure 132/81, pulse 61, and temperature 97.9. GENERAL: Patient is a pleasant male, who is in no acute distress. The patient appears their stated age. NEUROLOGIC: The patient is alert and oriented x3 with no focal neurologic deficits. HEENT: Sclerae without icterus. Mouth has moist mucous membranes with normal pallor. NECK: No JVD. Carotid upstroke brisk. No bruits bilaterally. LUNGS: Clear to auscultation with unlabored respirations. BACK: No scoliosis or kyphosis. CARDIAC: Regular rate and rhythm with normal S1 and S2. No S3 or S4 noted. No significant rubs, murmurs, thrills, or gallops noted throughout the precordium. PMI is not displaced. There is no parasternal heave. ABDOMEN: Soft, nontender, nondistended. No peritoneal signs present. No hepatosplenomegaly. No abnormal striae. EXTREMITIES: 2+ femoral and 2+ dorsalis pedis pulses. No cyanosis, clubbing, or edema. SKIN: No gross abnormalities. IMPRESSION: 1. Atypical chest pain. 2. Dizziness and lightheadedness. 3. Presyncope. RECOMMENDATIONS: Patient has been on telemetry monitoring at [facility] for three total days over the last two hospitalizations. No significant dysrhythmias are noted. Due to his financial constraints, there has been difficulty with event recorder. Patient states he will receive it tomorrow. This was confirmed with the company. Otherwise, I have no further recommendations. Job ID: [id number]
--- NOTE | 2019-07-01 05:36 | DIS ---
DATE OF ADMISSION: 06/28/2019 DATE OF DISCHARGE: 06/30/2019 PRIMARY CARE PROVIDER: None. DISCHARGE DIAGNOSES: 1. Chest pain. 2. Chest pain most likely secondary to musculoskeletal etiology. CONSULTATIONS DURING THIS HOSPITALIZATION: Cardiology, Dr. Werner. CONDITION OF PATIENT ON THE DAY OF DISCHARGE: Stable. I assessed Mr. Prado on the day of discharge. He reports the chest pain has improved. Vital signs are stable. S1 and S2 are heard, regular. Lungs are clear to auscultation bilaterally. HOSPITAL COURSE: Mr. Prado is a pleasant 63-year-old gentleman, who was admitted to [facility] on June 28, 2019 for chest pain. He was seen by Cardiology Service. Nuclear stress test on June 29 did not show any evidence of reversible ischemia. Left ventricular ejection fraction was 65%. Pulmonary embolism was ruled out with negative D-dimer. The patient continued to improve clinically and is being discharged home in a stable condition. Post acute care followup: Patient has been advised to follow up with a primary care provider in 3 days time and with Cardiology Service in 2 to 3 weeks time. DIET: Heart healthy. ACTIVITY: As tolerated. DISCHARGE DESTINATION: Home. Job ID: [id number]
== END 2019-06-30 16:49 | disposition home or self-care (01) ==
LOC: ERS 13:40 → 2SE 16:02
PROVIDERS: ADMIT Internal Medicine; ATTEND Internal Medicine
DX: R07.89 Other chest pain (principal); I10 Essential (primary) hypertension; R00.1 Bradycardia, unspecified; R42 Dizziness and giddiness; R55 Syncope and collapse; Z89.421 Acquired absence of other right toe(s)
CPT/HCPCS: 71045; 78452; 80048; 83036; 83735; 83880; 84484 ×2; 85025; 85379; 93005; 93017; 94760 ×2; 97139 ×2; 99285; A9500; 36415; 80053; 84443; 96360; 96361; 96372; G0378; J1650; J2785